=== PATIENT | female | born 1940 | race Caucasian/White ===

== ENCOUNTER 2016-05-29 10:57 | Outpatient (CLI) | payer MEDICARE ==
[2016-05-29 12:42] LABS: ALT (SGPT) 25 U/L (0-55); AST (SGOT) 21 U/L (5-34); Albumin 4.2 g/dL (3.4-4.8); Alkaline Phosphatase 63 U/L (40-150); Anion Gap 16 mmol/L (10-20); BUN (Urea Nitrogen) 17 mg/dL (9.8-20.1); Bilirubin, Total 0.2 mg/dL (0.2-1.2); Calc. Creatinine Clearance 0 mL/min (70-130); Calcium 9.8 mg/dL (7.8-10.44); Carbon Dioxide 23 mmol/L (23-31); Cardiac Risk 6.7 (Less than 4.5); Chloride 106 mmol/L (98-107); Cholesterol 235 mg/dL (< 200 Desired); Estimated GFR-MDRD 67; Globulin 3.3 g/dL (2.4-3.5); Glucose 100 mg/dL (83-110); HDL Cholesterol 35 mg/dL (>60 Neg Risk); LDL Cholesterol, Calculated 121 mg/dL; Potassium 4.3 mmol/L (3.5-5.1); Protein, Total 7.5 g/dL (5.8-8.1); Sodium 141 mmol/L (136-145); Triglycerides 396 mg/dL (Less than 150)
[2016-05-29 12:44] LABS: Bilirubin Negative (Negative); Blood, Urine Negative (Negative); Clarity Clear (Clear); Glucose, Urine (Dipstick) Negative (Negative); Leukocyte Moderate (Negative); Nitrite Negative (Negative); Protein, Urine (Dipstick) Negative (Neg-Trace); Specific Gravity, Urine 1.015 (1.005-1.030); Urobilinogen 0.2 mg/dL (0.2-1.0); pH, Urine 5.5 (5.0-9.0)
[2016-05-29 13:01] LABS: Bacteria/HPF Rare-Few HPF (None Seen); Hyaline Casts/LPF 0-3 HYALINE CAST LPF (0-3 Hyaline); RBC/HPF 0-3 HPF (0-3); Squamous Epithelial 0-3 HPF (0-3); Transitional Epithelial 0-3 HPF (0-3)
[2016-05-29 13:19] LABS: Eosinophils 3 % (0-10); Hemoglobin 13.6 g/dL (12.0-16.0); Lymphocytes 51 % (21-51); MDiff Complete? YES; Mean Corpuscular HGB CONC 32.4 g/dL (32.0-36.0); Mean Corpuscular Hemoglobin 30.1 pg (27.0-31.0); Mean Platelet Volume 7.6 fL (7.4-10.4); Monocytes 8 % (0-10); Neutrophil 38 % (42-75); PLT Morphology Comment Appears Adequate; Platelet Count 198 thou/uL (130-400); RBC Distribution Width 13.1 % (11.5-14.5); RBC Morphology Normal; Red Blood Cell (RBC) Count 4.53 mill/uL (4.20-5.40); White Blood Cell (WBC) Count 5.7 thou/uL (4.8-10.8)
== END 2016-05-29 10:58 | disposition home or self-care (01) ==
LOC: NAVSJIPCSP 10:57
PROVIDERS: ATTEND Internal Medicine
DX: E78.5 Hyperlipidemia, unspecified (principal); I11.0 Hypertensive heart disease with heart failure; E11.59 Type 2 diabetes mellitus with other circulatory complications; Z79.899 Other long term (current) drug therapy
CPT/HCPCS: 36415; 80053; 80061; 81003; 81015; 83036; 85025

== ENCOUNTER 2016-09-11 11:58 | Outpatient (CLI) | payer MEDICARE ==
[2016-09-11 14:09] LABS: Cholesterol 305 mg/dl (< 200 Desired); HDL Cholesterol 34 mg/dL (>60 Neg Risk); Triglycerides 967 mg/dL (Less than 150)
[2016-09-11 14:24] LABS: Hemoglobin A1c 7.8 % (4.0-6.0)
== END 2016-09-11 11:59 | disposition home or self-care (01) ==
LOC: NAVSJIPCSP 11:58
PROVIDERS: ATTEND Internal Medicine
DX: E78.5 Hyperlipidemia, unspecified (principal); E11.59 Type 2 diabetes mellitus with other circulatory complications; Z79.899 Other long term (current) drug therapy
CPT/HCPCS: 36415; 80061; 83036

== ENCOUNTER 2016-12-08 19:10 | Emergency (ER) | payer MEDICARE ==
[2016-12-08] MEDS ORDERED: Acetaminophen 325 MG TAB ONE (19:36)
--- NOTE | 2016-12-08 20:06 | CT ---
CT BRAIN WITHOUT CONTRAST: 12/08/16 HISTORY: Head injury, fell from standing position, hit back of head on tiled concrete floor. Headache. FINDINGS: Comparison made to exam of 10/21/14. No evidence of acute infarct, hemorrhage, midline shift or abnormal extra-axial fluid collections ar e seen. The ventricular size is stable and the basilar cisterns patent. The bony calvarium is intact . The visualized paranasal sinuses and right mastoid air cells are well aerated. There is a small am ount of fluid in the left mastoid air cell inferiorly. IMPRESSION: No CT evidence of acute intracranial process. POS: [facility]
[2016-12-08] MEDS ORDERED: HYDROcodone/Acetaminophen 5/325 mg Tablet ONE (20:40)
== END 2016-12-08 20:44 | disposition home or self-care (01) ==
LOC: NAV ERS 19:10
DX: S09.90XA Unspecified injury of head, initial encounter (principal); I42.9 Cardiomyopathy, unspecified; E03.9 Hypothyroidism, unspecified; E11.9 Type 2 diabetes mellitus without complications; F31.9 Bipolar disorder, unspecified; Z87.891 Personal history of nicotine dependence; Z79.4 Long term (current) use of insulin; Z79.899 Other long term (current) drug therapy; W18.00XA Striking against unspecified object with subsequent fall, initial encounter
CPT/HCPCS: 70450

== ENCOUNTER 2017-02-13 13:12 | Emergency (ER) | payer MEDICARE ==
--- NOTE | 2017-02-13 13:57 | RAD ---
NASAL BONES THREE VIEWS: HISTORY: A 76-year-old female with nasal bone injury following a fall. FINDINGS: Comminuted, nondisplaced to very minimally displaced nasal bone fractures are noted. The visualized paranasal sinuses are clear. IMPRESSION: Comminuted nondisplaced or essentially nondisplaced multiple nasal bone fractures. POS: [facility]
== END 2017-02-13 15:00 | disposition home or self-care (01) ==
LOC: NAV ERS 13:12
DX: S02.2XXA Fracture of nasal bones, initial encounter for closed fracture (principal); S16.1XXA Strain of muscle, fascia and tendon at neck level, initial encounter; E03.9 Hypothyroidism, unspecified; M19.90 Unspecified osteoarthritis, unspecified site; E11.9 Type 2 diabetes mellitus without complications; F31.9 Bipolar disorder, unspecified; Z87.891 Personal history of nicotine dependence; Z85.3 Personal history of malignant neoplasm of breast; W01.198A Fall on same level from slipping, tripping and stumbling with subsequent striking against other object, initial encounter
CPT/HCPCS: 70160

== ENCOUNTER 2017-02-13 19:14 | Emergency (ER) | payer MEDICARE ==
[2017-02-13] MEDS ORDERED: Dextrose 50% Abboject 50 ML SYRINGE ONE (19:20)
[2017-02-13] MEDS ORDERED: Sodium Chloride 0.9% 1,000 ML ONE (19:36)
[2017-02-13 19:58] LABS: ALT (SGPT) 27 U/L (8-55); AST (SGOT) 24 U/L (5-34); Albumin 3.9 g/dL (3.4-4.8); Alkaline Phosphatase 47 U/L (40-150); Anion Gap 12 mmol/L (10-20); BUN (Urea Nitrogen) 31 mg/dL (9.8-20.1); Bilirubin Negative (Negative); Bilirubin, Total 0.2 mg/dL (0.2-1.2); Blood, Urine Negative (Negative); CK (CPK) 181 U/L (29-168); Calc. Creatinine Clearance 0 mL/min (70-130); Calcium 10.2 mg/dL (7.8-10.44); Carbon Dioxide 32 mmol/L (23-31); Chloride 101 mmol/L (98-107); Estimated GFR-MDRD 41; Globulin 2.9 g/dL (2.4-3.5); Glucose, Urine (Dipstick) Negative (Negative); Leukocyte Negative (Negative); Nitrite Negative (Negative); Potassium 4.4 mmol/L (3.5-5.1); Protein, Total 6.8 g/dL (6.0-8.3); Protein, Urine (Dipstick) Negative (Neg-Trace); Sodium 141 mmol/L (136-145); Urobilinogen 0.2 mg/dL (0.2-1.0); pH, Urine 5.5 (5.0-9.0)
[2017-02-13 20:00] LABS: CKMB 6.2 ng/mL (0-6.6); Troponin I Less than 0.010 ng/mL (< 0.028)
[2017-02-13 20:09] LABS: Glucose 57 mg/dL (83-110)
[2017-02-13 20:11] LABS: Clarity SL HAZY (Clear)
--- NOTE | 2017-02-13 20:52 | RAD ---
AP VIEW CHEST 02/13/17 HISTORY: Altered mental status. Fall in parking lot. AP view chest is obtained on 02/13/17. Comparison made to previous exam from 10/21/14. AP view chest demonstrates dual lead intracardiac pacing device present. Cardiomegaly is seen. Pulmon vikas vascular congestion is seen. No evidence of effusions, pneumonia or pneumothorax seen. Surgical c lips seen in the right axillary region compatible with axillary lymph node dissection clips. IMPRESSION: Unremarkable AP view chest. POS: [facility]
[2017-02-13 21:14] LABS: #Eosinphils 0.1 thou/uL (0.0-0.7); #Lymphocytes 2.6 thou/uL (1.20-3.40); #Monocytes 0.6 thou/uL (0.11-0.59); #Neutrophils 3.9 thou/uL (1.40-6.50); %Basophils 0.4 % (0.0-1.0); %Eosinophils 1.3 % (0.0-10.0); %Lymphocytes 35.5 % (21.0-51.0); %Monocytes 8.5 % (0.0-10.0); %Neutrophils 54.2 % (42.0-75.0); Hemoglobin 11.6 g/dL (12.0-16.0); Mean Corpuscular HGB CONC 31.9 g/dL (32.0-36.0); Mean Corpuscular Hemoglobin 29.3 pg (27.0-31.0); Mean Corpuscular Volume 91.9 fl (81.0-99.0); Mean Platelet Volume 7.2 fL (7.4-10.4); Platelet Count 183 thou/uL (130-400); RBC Distribution Width 13.2 % (11.5-14.5); Red Blood Cell (RBC) Count 3.94 mill/uL (4.20-5.40); White Blood Cell (WBC) Count 7.2 thou/uL (4.8-10.8)
--- NOTE | 2017-02-13 21:52 | CT ---
CT BRAIN: 02/13/17 HISTORY: 76-year-old female with history of fall. Trauma with altered mental status. Noncontrast enhanced CT images of the brain is obtained. The brain is unremarkable. No evidence of intracranial masses, hemorrhages, strokes, or contusions se en. The ventricles are of normal size. There appears to be some soft tissue swelling around the nose with possible traumatic changes seen of the nasal bone. If there is physical trauma, in this area, then there appears to be acute minimally displaced nasal bone fracture. Correlate with clinical exam. IMPRESSION: Possible nasal bone fracture. No acute intracranial abnormality seen. POS: [facility]
== END 2017-02-13 21:09 | disposition short-term general hospital (02) ==
LOC: NAV ERS 19:14
DX: S02.2XXB Fracture of nasal bones, initial encounter for open fracture (principal); E11.649 Type 2 diabetes mellitus with hypoglycemia without coma; E03.9 Hypothyroidism, unspecified; M19.90 Unspecified osteoarthritis, unspecified site; M48.00 Spinal stenosis, site unspecified; F31.9 Bipolar disorder, unspecified; Z85.3 Personal history of malignant neoplasm of breast; Z87.891 Personal history of nicotine dependence; Z79.899 Other long term (current) drug therapy; W19.XXXA Unspecified fall, initial encounter; Y92.481 Parking lot as the place of occurrence of the external cause
CPT/HCPCS: 36416; 51702; 70160; 70450; 71010; 80053; 81003; 82550; 82553; 83605; 83880; 84484; 85025; 87040; 87086; 93005; 94760; 96361; 96374; 36415-59; J7050

== ENCOUNTER 2017-05-18 16:25 | Emergency (ER) | payer MEDICARE ==
[2017-05-18] MEDS ORDERED: Lidocaine 1% 20 ML MDV ONE (16:37)
[2017-05-18] MEDS ORDERED: Adacel (T-DAP) 0.5 ML VIAL ONE (17:21)
[2017-05-18] MEDS ORDERED: Bacitracin Zinc 1 Packet ONE (17:40)
== END 2017-05-18 17:53 | disposition home or self-care (01) ==
LOC: NAV ERS 16:25
DX: S61.210A Laceration without foreign body of right index finger without damage to nail, initial encounter (principal); S61.212A Laceration without foreign body of right middle finger without damage to nail, initial encounter; I11.0 Hypertensive heart disease with heart failure; I50.9 Heart failure, unspecified; E78.5 Hyperlipidemia, unspecified; E03.9 Hypothyroidism, unspecified; M19.90 Unspecified osteoarthritis, unspecified site; E10.9 Type 1 diabetes mellitus without complications; F31.9 Bipolar disorder, unspecified; Z87.891 Personal history of nicotine dependence; W26.0XXA Contact with knife, initial encounter; Y92.009 Unspecified place in unspecified non-institutional (private) residence as the place of occurrence of the external cause
CPT/HCPCS: 12002; 90471; 90715; J2001

== ENCOUNTER 2018-04-25 12:36 | Outpatient (CLI) | payer MEDICARE ==
--- NOTE | 2018-04-25 13:48 | CT ---
CT ABDOMEN AND PELVIS NONCONTRAST: 04/25/2018 HISTORY: Renal colic. COMPARISON: PET CT examination on 07/20/2012. FINDINGS: AICD leads are visualized. Vascular calcifications are present in the abdominal aorta and involving the iliac arteries. There is contrast seen in the distal esophagus, which may be related to gastroesophageal reflux. The lung bases are clear. There are degenerative change in the spine. There is a probable Schmorl's node in the superior endpl ate of the T12 vertebral body. Vacuum phenomenon is seen in the intervertebral disks at multiple lev els. Again noted are subcentimeter increased density lesions seen at the peripheral aspects of each kidney , which are overall stable in size. However, there has been interval development of an increased den sity, exophytic lesion at the posterior aspect, inferior pole, left kidney, which measures 1.8 cm. F urther evaluation is warranted with CT exam post contrast. No renal or ureteral calculi are seen bilaterally, and there is no evidence of hydronephrosis. The u rinary bladder is partially distended and has a grossly normal nonenhanced CT appearance. The liver, spleen, pancreas, bilateral adrenal glands, and uterus demonstrate a grossly normal nonenh anced CT appearance for the patient's age. There is a circumscribed, 2.8 cm, hypodense, cystic-appearing structure in the right adnexa, which do es demonstrate fluid attenuation on this nonenhanced CT scan exam, and may represent a right ovarian cyst. The appendix is visualized and normal in caliber. A fat-containing umbilical hernia is seen with calcification seen within the hernia defect. This is stable from prior exam. Lack of intravenous contrast limits evaluation, but no definite enlarged lymph nodes are seen by CT s ize criteria. There is a small amount of retained fecal material seen throughout the colon, suggesting constipation . IMPRESSION: 1. Interval development of an exophytic increased density lesion, posterior aspect, inferior pole, l eft kidney. Further evaluation with CT examination following renal mass protocol before and after in travenous contrast is recommended. 2. 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 3. Constipation. 4. No CT evidence of appendicitis. 5. No renal or ureteral calculi are seen bilaterally, and there is no hydronephrosis. 6. Small fat-containing umbilical hernia. CODE T
== END 2018-04-25 12:37 | disposition home or self-care (01) ==
LOC: NAV CT 12:36
PROVIDERS: ATTEND Internal Medicine
DX: N23 Unspecified renal colic (principal); N28.89 Other specified disorders of kidney and ureter; K59.00 Constipation, unspecified; K42.9 Umbilical hernia without obstruction or gangrene
CPT/HCPCS: 74176

== ENCOUNTER 2020-10-08 08:28 | Outpatient (CLI) | payer MEDICARE ==
[2020-10-08] MEDS ORDERED: Iopamidol 370 76% 100 ML VIAL ONE (09:00)
== END 2020-10-08 08:29 | disposition home or self-care (01) ==
LOC: NAV CT 08:28
PROVIDERS: ATTEND Urology
DX: N28.89 Other specified disorders of kidney and ureter (principal)
CPT/HCPCS: 36415; 74178; 82565; Q9967

== ENCOUNTER 2021-01-03 15:13 | Emergency (ER) | payer MEDICARE ==
[2021-01-03 16:15] LABS: #Eosinphils 0.1 thou/uL (0.0-0.7); #Lymphocytes 2.4 thou/uL (1.20-3.40); #Monocytes 0.5 thou/uL (0.11-0.59); #Neutrophils 1.8 thou/uL (1.40-6.50); %Basophils 0.7 % (0.0-1.0); %Eosinophils 2.1 % (0.0-10.0); %Lymphocytes 49.6 % (21.0-51.0); %Monocytes 9.5 % (0.0-10.0); %Neutrophils 38.1 % (42.0-75.0); Hemoglobin 13.5 g/dL (12.0-16.0); Mean Corpuscular HGB CONC 31.5 g/dL (32.0-36.0); Mean Corpuscular Hemoglobin 29.5 pg (27.0-31.0); Mean Corpuscular Volume 93.5 fL (78.0-98.0); Mean Platelet Volume 7.2 fL (7.4-10.4); Platelet Count 225 thou/uL (130-400); RBC Distribution Width 12.8 % (11.5-14.5); Red Blood Cell (RBC) Count 4.59 mill/uL (4.20-5.40); White Blood Cell (WBC) Count 4.8 thou/uL (4.8-10.8)
[2021-01-03 16:32] LABS: ALT (SGPT) 38 U/L (8-55); AST (SGOT) 35 U/L (5-34); Albumin 3.4 g/dL (3.4-4.8); Alkaline Phosphatase 54 U/L (40-110); Anion Gap 13 mmol/L (10-20); BUN (Urea Nitrogen) 21 mg/dL (9.8-20.1); Bilirubin, Total 0.5 mg/dL (0.2-1.2); Calc. Creatinine Clearance 0 mL/min (70-130); Calcium 10.1 mg/dL (7.8-10.44); Carbon Dioxide 25 mmol/L (23-31); Chloride 104 mmol/L (98-107); Globulin 3.7 g/dL (2.4-3.5); Glucose 132 mg/dL (83-110); Potassium 4.1 mmol/L (3.5-5.1); Protein, Total 7.1 g/dL (5.8-8.1); Sodium 138 mmol/L (136-145)
[2021-01-03 19:10] LABS: SARS-CoV-2 NAA Rapid Test Not Detected (NotDetected)
[2021-01-03] MEDS ORDERED: traMADol HCl 50 MG TAB ONE (19:23)
== END 2021-01-03 20:07 | disposition short-term general hospital (02) ==
LOC: NAV ERS 15:13
DX: T82.111A Breakdown (mechanical) of cardiac pulse generator (battery), initial encounter (principal); Z20.822 Contact with and (suspected) exposure to COVID-19; I50.9 Heart failure, unspecified; E78.5 Hyperlipidemia, unspecified; I11.0 Hypertensive heart disease with heart failure; E03.9 Hypothyroidism, unspecified; Z87.891 Personal history of nicotine dependence; Z79.899 Other long term (current) drug therapy
CPT/HCPCS: 71045; 80053; 83880; 84484; 85025; 93005; U0002

== ENCOUNTER 2021-05-17 08:49 | Outpatient (CLI) | payer MEDICARE ==
[2021-05-17] MEDS ORDERED: Iopamidol 370 76% 100 ML VIAL ONE (09:00)
== END 2021-05-17 08:50 | disposition home or self-care (01) ==
LOC: NAV CT 08:49
PROVIDERS: ATTEND Urology
DX: N28.89 Other specified disorders of kidney and ureter (principal); N28.1 Cyst of kidney, acquired
CPT/HCPCS: 74178; Q9967

== ENCOUNTER 2021-06-27 14:36 | Outpatient (CLI) | payer MEDICARE ==
[2021-06-28 12:12] LABS: SARS-CoV-2 PCR by NAA Not Detected (NotDetected)
== END 2021-06-27 14:37 | disposition home or self-care (01) ==
LOC: NAV LAB 14:36
PROVIDERS: ATTEND Internal Medicine Gastroenterology
DX: Z20.822 Contact with and (suspected) exposure to COVID-19 (principal)
CPT/HCPCS: U0003; U0005

== ENCOUNTER 2022-05-29 11:01 | Outpatient (CLI) | payer MEDICARE ==
[~2022-05-29 11:01] MED LIST: Iopamidol 370 76% 100 ML VIAL ONE
== END 2022-05-29 11:02 | disposition home or self-care (01) ==
LOC: NAV CT 11:01
PROVIDERS: ATTEND Urology
DX: Z01.812 Encounter for preprocedural laboratory examination (principal); N28.89 Other specified disorders of kidney and ureter; N28.1 Cyst of kidney, acquired
CPT/HCPCS: 36415; 74178; 82565; Q9967

== ENCOUNTER 2024-10-09 06:38 | Emergency (ER) | payer MEDICARE ==
[2024-10-09 07:59] LABS: Anion Gap 17 mmol/L (10-20); BUN (Urea Nitrogen) 64 mg/dL (9.8-20.1); Calc. Creatinine Clearance 0 mL/min (70-130); Calcium 9.8 mg/dL (7.8-10.44); Carbon Dioxide 21 mmol/L (23-31); Chloride 91 mmol/L (98-107); Glucose 100 mg/dL (83-110); Potassium 4.3 mmol/L (3.5-5.1); Sodium 125 mmol/L (136-145)
[2024-10-09 08:11] LABS: %Lymphocytes 25.0 % (21.0-51.0); %Neutrophils 62.8 % (42.0-75.0); Hematocrit 29.6 % (36.0-47.0); Hemoglobin 9.6 g/dL (12.0-16.0); Manual Diff?? NO; Mean Corpuscular Hemoglobin 28.1 pg (27.0-31.0); Mean Corpuscular Volume 87.0 fl (78.0-98.0); Platelet Count 255 10x3/uL (130-400); Red Blood Cell (RBC) Count 3.40 mill/uL (4.20-5.40); White Blood Cell (WBC) Count 6.5 10x3/uL (4.8-10.8)
[2024-10-09 08:12] LABS: #Basophils 0.1 thou/uL (0.0-0.2); #Eosinophils 0.3 thou/uL (0.0-0.7); #Lymphocytes 1.6 thou/uL (1.20-3.40); #Monocytes 0.4 thou/uL (0.11-0.59); #Neutrophils 4.1 thou/uL (1.40-6.50); %Basophils 1.4 % (0.0-1.0); %Eosinophils 4.9 % (0.0-10.0); %Monocytes 5.9 % (0.0-10.0)
== END 2024-10-09 08:25 | disposition home or self-care (01) ==
LOC: NAV ERS 06:38
DX: H00.013 Hordeolum externum right eye, unspecified eyelid (principal); I13.0 Hypertensive heart and chronic kidney disease with heart failure and stage 1 through stage 4 chronic kidney disease, or unspecified chronic kidney disease; E10.22 Type 1 diabetes mellitus with diabetic chronic kidney disease; N18.9 Chronic kidney disease, unspecified; I50.9 Heart failure, unspecified; E78.00 Pure hypercholesterolemia, unspecified; E03.9 Hypothyroidism, unspecified; Z79.890 Hormone replacement therapy; Z87.891 Personal history of nicotine dependence; Z79.51 Long term (current) use of inhaled steroids; Z79.01 Long term (current) use of anticoagulants; Z79.899 Other long term (current) drug therapy
CPT/HCPCS: 36415; 80048; 85025; 99283

== ENCOUNTER 2024-10-11 17:11 | Emergency (ER) | payer MEDICARE ==
[2024-10-11 18:04] LABS: #Basophils 0.0 thou/uL (0.0-0.2); #Eosinophils 0.0 thou/uL (0.0-0.7); #Lymphocytes 1.1 thou/uL (1.20-3.40); #Monocytes 0.5 thou/uL (0.11-0.59); #Neutrophils 2.2 thou/uL (1.40-6.50); %Basophils 0.7 % (0.0-1.0); %Eosinophils 0.9 % (0.0-10.0); %Lymphocytes 29.0 % (21.0-51.0); %Monocytes 11.7 % (0.0-10.0); %Neutrophils 57.6 % (42.0-75.0); Hematocrit 33.1 % (36.0-47.0); Hemoglobin 10.9 g/dL (12.0-16.0); Mean Corpuscular Hemoglobin 30.2 pg (27.0-31.0); Mean Corpuscular Volume 91.5 fl (78.0-98.0); Platelet Count 204 10x3/uL (130-400); Red Blood Cell (RBC) Count 3.62 mill/uL (4.20-5.40); White Blood Cell (WBC) Count 3.8 10x3/uL (4.8-10.8)
[2024-10-11 18:23] LABS: ALT (SGPT) 47 U/L (Less than 34); AST (SGOT) 72 U/L (11-34); Albumin 2.8 g/dL (3.1-4.5); Alkaline Phosphatase 27 U/L (40-110); Anion Gap 22 mmol/L (10-20); BUN (Urea Nitrogen) 78 mg/dL (9.8-20.1); Bilirubin, Total 0.7 mg/dL (0.3-1.2); Calc. Creatinine Clearance 0 mL/min (70-130); Calcium 9.4 mg/dL (7.8-10.44); Carbon Dioxide 14 mmol/L (23-31); Chloride 87 mmol/L (98-107); Globulin 3.6 g/dL (2.4-3.5); Glucose 125 mg/dL (83-110); Potassium 5.3 mmol/L (3.5-5.1)
[2024-10-11 18:27] LABS: Critical Call Chemistry LOYJO@1825; Sodium 118 mmol/L (136-145)
[2024-10-11 18:39] LABS: Critical Call Chem Troponin I LOYJO@1835.NW; Troponin I 0.334 ng/mL (< 0.028)
== END 2024-10-11 21:20 | disposition short-term general hospital (02) ==
LOC: NAV ERS 17:11
DX: E87.1 Hypo-osmolality and hyponatremia (principal); N17.9 Acute kidney failure, unspecified; I95.9 Hypotension, unspecified; I11.0 Hypertensive heart disease with heart failure; I50.9 Heart failure, unspecified; E03.9 Hypothyroidism, unspecified; E10.9 Type 1 diabetes mellitus without complications; Z87.891 Personal history of nicotine dependence; Z79.890 Hormone replacement therapy; Z79.01 Long term (current) use of anticoagulants; Z79.899 Other long term (current) drug therapy
CPT/HCPCS: 71045; 80053; 84484; 85025; 87426; 93005; J7030 ×2; 96360; 96361